=== PATIENT | female | born 1975 | race Caucasian/White ===

== ENCOUNTER 2021-01-21 15:00 | Outpatient (RCR) | payer BC, SELFPAY ==
[2021-01-14 11:12] VITALS: BMI 24.7
[2021-01-14 11:18] VITALS: BMI 24.7
== END 2021-03-31 13:57 | disposition home or self-care (01) ==
LOC: ANHDMC 15:00
PROVIDERS: Referring Provider Internal Medicine Endocrinology, Diabetes & Metabolism; Visit Provider Internal Medicine Endocrinology, Diabetes & Metabolism
DX: E11.9 Type 2 diabetes mellitus without complications (principal); Z79.4 Long term (current) use of insulin; Z71.3 Dietary counseling and surveillance; Z71.89 Other specified counseling
CPT/HCPCS: 97802; 99199; G0108

== ENCOUNTER 2021-04-22 07:55 | Outpatient (RCR) | payer BC, SELFPAY | END 2021-07-07 11:19 | disposition home or self-care (01) | LOC: ANHDMC 07:55 | PROVIDERS: Referring Provider Internal Medicine Endocrinology, Diabetes & Metabolism; Visit Provider Internal Medicine Endocrinology, Diabetes & Metabolism | DX: E11.9 Type 2 diabetes mellitus without complications (principal); Z79.4 Long term (current) use of insulin | CPT/HCPCS: 99199 ==

== ENCOUNTER 2022-05-19 15:26 | Outpatient (RCR) | payer BC, SELFPAY ==
[2022-05-19 17:56] LABS: Creatinine Urine 78.4 mg/dL
[2022-05-19 18:06] LABS: MALB Creatinine Ratio < 7.7 mg/g (0-30); Microalbumin Urine Random < 6.0 mg/L (0-16.7)
== END 2022-08-17 23:59 | disposition home or self-care (01) ==
LOC: ANHWCLAB 15:26
PROVIDERS: Visit Provider Internal Medicine Endocrinology, Diabetes & Metabolism
DX: E10.9 Type 1 diabetes mellitus without complications (principal)
CPT/HCPCS: 82043